=== PATIENT | female | born 1975 | race Caucasian/White ===

== ENCOUNTER 2016-11-13 12:01 | Emergency (ER) | payer SELFPAY ==
[2016-11-13 12:06] VITALS: BP 162/98; BMI 27.4
--- NOTE | 2016-11-13 12:36 | DR.GENAD ---
HPI - PCP Primary Care Physician: MAHESH - HPI Comment HPI Comment: HANDS AND FEET ARE SWOLLEN. NO THROAT DISCOMFORT OR SOB. NO DYSURIA OR HEMATURIA. - Complaint/Symptoms Chief Complaint Doctors Comments: RASH, GENERALIZE, PRURITUS AND LT FLANK PAIN TIMES SEVRAL DAYS. Chief Complaint:: PT. C/O LEFT FLANK PAIN, LEFT HAND AND FOOT ITCHING, PAINFUL, AND SWELLING. PT. ALSO C/O LOWER BACK PAIN. DENIES URINARY PROBLEMS. - Nurses notes reviewed Nurses Notes Review: Yes - Source History Provided: Patient - Mode of Arrival Mode of Arrival: Ambulatory - Timing Onset of Chief Complaint: 11/12/16 Came on: Gradually - Duration Duration: Constant Duration: Days - Severity Severity: Moderate PMH - PMH Past Medical History: No Past Surgical History: Yes Surgical History: Hysterectomy Past Surgical History Comment: PARTIAL HYSTERECTOMY - Family History History of Family Medical Conditions: Yes Family Medical History: Diabetes Mellitus, Cancer - Social History Does patient currently use any type of tobacco product: Yes Have you used tobacco products in the last 12 months: Yes Type of Tobacco Use: Cigarettes How many years tobacco product used: 20 Does any household member use tobacco: No Alcohol Use: None Do you use any recreational Drugs:: No Lives With: Spouse Lives Where: Home - infectious screening In the last 2 months have you had wt loss of >10#?: NO Have you had fever, night sweats or hemotysis?: No Have you traveled outside the country in the last 6 months?: No Isolation: Standard ROS - Review of Systems Constitutional: Weakness, Fatigue. negative: Fever Eyes: No Symptoms Reported. negative: Eye Pain, Discharge ENTM: Nose Congestion. negative: Ear Pain, Nose Discharge, Throat Pain Respiratoy: Non-Productive Cough. negative: Short of Breath, Wheezing, Hemoptysis Cardiovascular: No Symptoms Reported Gastrointestinal/Abdominal: No Symptoms Reported Genitourinary: Other (FLANK PAIN) Neurological: No Symptoms Reported Musculoskeletal: Muscle Pain Integumentary: Rash, Itching Hematologic/Lymphatic: No Symptoms Reported Endocrine: No Symptoms Reported All Other Systems: Reviewed and Negative PE - Vital Signs Vitals: Temperature 98.1 F Pulse Rate 102 Respiratory Rate 17 Blood Pressure 162/98 O2 Sat by Pulse Oximetry 99 - General Limitations: No Limitations General Appearance: Alert - Head Head Exam: Normal Inspection - Eyes Eye exam: Normal Appearance - ENT ENT Exam: Normal External Ear Exam External Ear Exam: Normal External Inspection TM/Canal Exam: Bilateral Normal Nose Exam: Normal Nose Exam Mouth Exam: Normal Inspection Throat Exam: Normal Inspection - Neck Neck Exam: Trachea Midline - Chest Chest Inspection: Symmetric Chest Wall Rise - Respiratory Respiratory Exam: Normal Lung Sounds Bilat Respiratory Exam: Bilateral Clear to Auscultation - Cardiovascular Cardiovascular Exam: Regular Rate, Normal Rhythm, Normal Heart Sounds - Abdominal Exam Abdominal Exam: Normal Inspection, Soft. negative: Tenderness ( ) - Extremities Extremities Exam: Normal Inspection - Back Back Exam: negative: (R) CVA Tenderness, (L) CVA Tenderness, Paraspinal Tenderness - Psychiatric Psychiatric Exam: Normal Affect, Normal Mood - Skin Skin Exam: Rash (MACULOPAPULAR RASH, GENERALIZE), Erythema MDM - Additional Information Additional Information Obtained From: Family - Differential Diagnosis Differential Diagnosis: UTI, KIDNEY STONE MUSCLE STRAIN, ALLERGIC REACTION, RASH , PRURITUS Course - Treatment Treatment: SEE ORDERS - Education/Counseling Education/Counseling: Patient, Family, Education Educated On: Diagnosis, Needs for Follow Up ROR - Labs Reviewed Laboratory Results Reviewed?: Yes Laboratory: Specimen Type Clean catch urine 11/13/16 12:49 Urine Color Yellow (YELLOW) 11/13/16 12:49 Urine Appearance Clear (CLEAR) 11/13/16 12:49 Urine pH 6.0 (5.0 - 8.0) 11/13/16 12:49 Ur Specific [place] 1.005 (1.000-1.030) 11/13/16 12:49 Urine Protein Negative (NEGATIVE) 11/13/16 12:49 Urine Glucose (UA) Negative (NEGATIVE) 11/13/16 12:49 Urine Ketones Negative (NEGATIVE) 11/13/16 12:49 Urine Occult Blood Negative (NEGATIVE) 11/13/16 12:49 Urine Nitrite Negative (NEGATIVE) 11/13/16 12:49 Urine Bilirubin Negative (NEGATIVE) 11/13/16 12:49 Urine Urobilinogen Normal (NORMAL) 11/13/16 12:49 Ur Leukocyte Esterase Negative (NEGATIVE) 11/13/16 12:49 Urine RBC None seen /HPF (NEGATIVE) 11/13/16 12:49 Urine WBC None seen /HPF (NEGATIVE) 11/13/16 12:49 Ur Squamous Epith Cells Moderate /HPF (NEGATIVE) 11/13/16 12:49 Urine Bacteria Negative /HPF (NEGATIVE) 11/13/16 12:49 Ur Culture Indicated? No/not indicated 11/13/16 12:49 - Diagnosis Discharge Problem: Flank pain Allergic reaction Qualifiers: Encounter type: initial encounter Qualified Code(s): T78.40XA - Allergy, unspecified, initial encounter - Discharge Plan Disposition: HOME, SELF-CARE Condition: Stable Prescriptions: Hydroxyzine Pamoate [Vistaril] 25 mg PO TID PRN #20 cap PRN Reason: Ibuprofen [MOTRIN TAB 600 MG *] 600 mg PO TID PRN #20 tab PRN Reason: Pain/Inflammation Methylprednisolone Dosepak 4Mg [MEDROL DOSEPAK (4 mg tab x 21)] 1 leonel PO ONCE # 1 leonel - Follow ups/Referrals Follow ups/Referrals: MACIEJ ARAGON [Primary Care Provider] - 3 days - Instructions Instructions: Allergies, [id number], Flank Pain, [id number] Additional Instructions: RETURN TO ED IF WORSE.
[2016-11-13] MEDS ORDERED: DECADRON INJ IM ONE (12:37)
[2016-11-13] MEDS ORDERED: BENADRYL INJ 50 MG VIAL IM ONE (12:37)
[2016-11-13] MEDS ORDERED: DECADRON INJ ONE (12:53)
[2016-11-13] MEDS ORDERED: BENADRYL INJ 50 MG VIAL ONE (12:53)
[2016-11-13 13:12] LABS: BILIRUBIN,URINE NEGATIVE (NEGATIVE); BLOOD/HEMOGLOBIN,URINE NEGATIVE (NEGATIVE); GLUCOSE, URINE NEGATIVE (NEGATIVE); KETONES,URINE NEGATIVE (NEGATIVE); LEUKOCYTE ESTERASE ,URINE NEGATIVE (NEGATIVE); NITRITES,URINE NEGATIVE (NEGATIVE); PROTEIN,URINE NEGATIVE (NEGATIVE); UROBILINOGEN,URINE NORMAL (NORMAL)
[2016-11-13 13:21] LABS: APPEARANCE,URINE CLEAR (CLEAR); BACTERIA,URINE NEGATIVE /HPF (NEGATIVE); COLOR,URINE YELLOW (YELLOW); RBC,URINE NONE SEEN /HPF (NEGATIVE); SQUAMOUS EPITHELIAL CELL,UR MODERATE /HPF (NEGATIVE)
== END 2016-11-13 13:39 | disposition home or self-care (01) ==
LOC: ER 12:12
DX: T78.49XA Other allergy, initial encounter (principal); R10.84 Generalized abdominal pain
CPT/HCPCS: 81001; 96372; 99282; J1100; J1200